=== PATIENT | female | born 1985 | race Caucasian/White ===

== ENCOUNTER 2021-06-13 15:39 | Emergency (ER) | payer OTHER, SELFPAY ==
[2021-06-13 15:42] VITALS: BP 116/77; PULSE 76; RESP 14; TEMP 37.1; O2SAT 100
[2021-06-13 15:53] VITALS: BP 116/77; PULSE 76; RESP 14; TEMP 37.1; O2SAT 100
--- NOTE | 2021-06-13 16:06 | ED.SKABFB ---
HPI - Skin/Abscess/Foreign Bdy General Chief complaint: Skin/Abscess/Foreign Body Stated complaint: right leg sting Time Seen by Provider: 06/13/21 15:52 Source: patient and RN notes reviewed Mode of arrival: ambulatory Limitations: no limitations History of Present Illness HPI narrative: Patient presents today complaining of an insect sting to her right leg that was sustained yesterday. She is unsure if she was stung by a wasp or hornet. States the area itches and is sore. She currently rates the pain 2/10. She did not take anything yesterday or use any [id number] interventions. Prior to arrival she took 25 mg of Benadryl and 600 mg of ibuprofen and put some [id number] hydrocortisone on the area. MD complaint: insect bite/sting Related Data Allergies Allergy/AdvReac Type Severity Reaction Status Date / Time No Known Allergies Allergy Verified 06/13/21 15:52 Review of Systems Review of Systems: CONSTITUTIONAL: Denies body aches, fever, chills, or sweats. EYES: Denies visual changes, redness, or discharge. ENT: Denies rhinorrhea, congestion, sore throat, or otalgia. CARDIOVASCULAR: Denies chest pain, palpitations, or edema. RESPIRATORY: Denies cough or dyspnea. GASTROINTESTINAL: Denies abdominal pain, nausea, vomiting, or diarrhea. GENITOURINARY: Denies dysuria or hematuria. SKIN: Denies rash, itching, or wounds.+ Insect sting to right leg MUSCULOSKELETAL: Denies back pain, joint pain, or myalgia. NEUROLOGIC: Denies headache, numbness, tingling, or weakness. PSYCH: Denies depression or anxiety. PMFSH Comments At time of signature, I have reviewed and agree with nursing past medical, surgical, social and family history unless otherwise noted. Please see nursing chart for further information. There is no relevant family history pertinent to the presenting complaint Exam Narrative: GENERAL: Well-appearing, well-nourished, and in no acute distress. HEAD: Normocephalic, atraumatic. EYES: EOMI. No redness or drainage. Conjunctivae normal. ENT: Mucous membranes pink and moist. NECK: Normal AROM. CHEST: No respiratory distress. EXTREMITIES: A 2 x 14 cm area of erythema to the right medial popliteal fossa. Mild localized edema noted. Nontender to palpation. No fluctuance noted. No induration noted. No signs of bacterial infection noted. SKIN: Warm, dry, no rash. Capillary refill normal. Normal skin turgor. NEURO: No focal deficits. Alert and oriented x3. Gait steady. PSYCH: Normal affect. No signs of depression or anxiety. Course Vital Signs Vital signs: Vital Signs Temperature 98.8 F 06/13/21 15:42 Pulse Rate 76 06/13/21 15:42 Respiratory Rate 14 06/13/21 15:42 Blood Pressure 116/77 06/13/21 15:42 Pulse Oximetry 100 06/13/21 15:42 Temperature 98.8 F 06/13/21 15:53 Pulse Rate 76 06/13/21 15:53 Respiratory Rate 14 06/13/21 15:53 Blood Pressure 116/77 06/13/21 15:53 Pulse Oximetry 100 06/13/21 15:53 Reviewed MDM - Skin/Abscess/Foreign Bdy Differential Diagnosis Differential diagnosis: Likely abscess of skin or subcutaneous tissue, urticaria, cellulitis, eczema, insect bites, impetigo and contact dermatitis Critical Care Time Critical Care Time Critical Care Time: No Discharge Plan Discharge Clinical Impression: Allergic reaction to insect sting Qualifiers: Encounter type: initial encounter Injury intent: accidental or unintentional Qualified Code(s): T63.481A - Toxic effect of venom of other arthropod, accidental (unintentional), initial encounter Patient Disposition: Home, Self-Care Condition: Stable Instructions: Insect Bite or Sting (ED) Additional Instructions: Use the triamcinolone cream as directed. Continue Benadryl and ibuprofen. Apply cold or ice pack to help with inflammation as well. Monitor for any signs of infection such as changing redness, increased pain, and seek reevaluation if you note any. Patient Language: Greek
== END 2021-06-13 16:13 | disposition home or self-care (01) ==
PROVIDERS: Emergency Provider Nurse Practitioner
DX: T63.461A Toxic effect of venom of wasps, accidental (unintentional), initial encounter (principal)
CPT/HCPCS: 99213; G0463

== ENCOUNTER 2021-09-11 17:29 | Emergency (ER) | payer OTHER, SELFPAY ==
[2021-09-11 17:36] VITALS: BP 119/72; PULSE 72; RESP 14; TEMP 37.1; O2SAT 98
--- NOTE | 2021-09-11 17:46 | ED.GENADULT ---
HPI - General Adult General Chief complaint: Upper Respiratory Infection Stated complaint: Sinus Pain/Congestioin/Cough Time Seen by Provider: 09/11/21 17:46 Source: patient Mode of arrival: ambulatory Limitations: no limitations History of Present Illness HPI narrative: 36-year-old female patient presents to the [facility] with complaints of cold symptoms for the past 6 days. Patient states she started feeling bad last Sunday and took a PCR Covid test on that day which did come back negative. Patient states she actually felt a lot better this past Sunday and started having symptoms that came back again last night. Patient states she has had a cough, runny nose, sinus pressure, headache and sneezing. Denies fevers. Related Data Allergies Allergy/AdvReac Type Severity Reaction Status Date / Time No Known Allergies Allergy Verified 09/11/21 17:48 Review of Systems Review of Systems: CONSTITUTIONAL: Denies fever, chills, or sweats. Positive body aches EYES: Denies visual changes, redness, or discharge. ENT: Positive rhinorrhea, congestion, denies sore throat, or otalgia. CARDIOVASCULAR: Denies chest pain, palpitations, or edema. RESPIRATORY: Positive productive cough, denies dyspnea. GASTROINTESTINAL: Denies abdominal pain, nausea, vomiting, or diarrhea. GENITOURINARY: Denies dysuria or hematuria. SKIN: Denies rash or itching. MUSCULOSKELETAL: Denies back pain, joint pain, or myalgia. NEUROLOGIC: Positive headache, numbness, or weakness. PSYCHIATRIC: Denies anxiety or depression. PMFSH Past Medical History Medical History (Updated 09/11/21 @ 18:22 by DOMINIC Salguero) Bronchitis Depression Pneumonia Family History Family History (Updated 09/11/21 @ 17:47 by DOMINIC Salguero) Other Heart disease Hypertension Social History Social History (Updated 09/11/21 @ 17:47 by DOMINIC Salguero) Smoking status: Current every day smoker Substance use: former Substance use type: marijuana Comments At the time of my signature I agree with nursing past medical history, surgical, social, and family history. There is no relevant family history pertinent to the presenting complaint. Exam Narrative: GENERAL: ill-appearing, well-nourished, and in no acute distress. HEAD: Normocephalic, atraumatic. EYES: PERRLA and EOMI. ENT: Nares with erythema and edema noted bilaterally no rhinorrhea or epistaxis. Mucous membranes moist. Posterior pharynx with no erythema, tonsillar edema, exudates or lesions present. NECK: Supple. No lymphadenopathy CHEST: Slight expiratory wheezing noted to bilateral lower lobes on auscultation no respiratory distress. HEART: Regular rate and rhythm. No murmur heard. Normal peripheral pulses. ABDOMEN: Soft, nontender, nondistended, normal active bowel sounds. EXTREMITIES: Normal range of motion. No edema. SKIN: Warm, dry, no rash. NEURO: No focal deficits. Alert and oriented x3. Course Reevaluation(s) Reevaluation #1: Reevaluated patient after her breathing treatment. Patient states she does feel little bit better. Patient continues to have a little bit of decreased lung sounds noted to the left lower lobe but the wheezing has improved overall. Discussed with patient that we will go ahead and discharge her home with an inhaler as well as some oral steroids to help with the wheezing and we will call her in a couple of days with the PCR Covid return results. Patient verbalized understanding denies any other questions or concerns at this time. Date: 09/11/21 Time: 18:23 Vital Signs Vital signs: Vital Signs Temperature 37.1 C 09/11/21 17:36 Pulse Rate 72 09/11/21 17:36 Respiratory Rate 14 09/11/21 17:36 Blood Pressure 119/72 09/11/21 17:36 Pulse Oximetry 98 09/11/21 17:36 Temperature 37.1 C 09/11/21 17:51 Pulse Rate 72 09/11/21 17:51 Respiratory Rate 16 09/11/21 18:18 Blood Pressure 119/72 09/11/21 17:51 Pulse Oximetry 99 09/11/21 18:18 Vital
[2021-09-11 17:51] VITALS: BP 119/72; PULSE 72; RESP 14; TEMP 37.1; O2SAT 98
[2021-09-11] MEDS: ALBUTEROL SULFATE NEB 2.5 MG/3 ML INH INHALATION (17:55)
[2021-09-11] MEDS: IPRATROPIUM BR 0.02% INH SOLN 0.5 MG/2.5 ML VIAL INHALATION (17:55)
[2021-09-11 18:18] VITALS: RESP 16; O2SAT 99
[2021-09-14 19:54] LABS: SARS-CoV-2 RNA PCR Negative
== END 2021-09-11 18:31 | disposition home or self-care (01) ==
PROVIDERS: Emergency Provider Nurse Practitioner Family
DX: J06.9 Acute upper respiratory infection, unspecified (principal); R05.9 Cough, unspecified; Z20.822 Contact with and (suspected) exposure to COVID-19; F17.200 Nicotine dependence, unspecified, uncomplicated
CPT/HCPCS: 87804; 94640; 99213; C9803; G0463; U0003; U0005

== ENCOUNTER 2022-12-29 17:14 | Emergency (ER) | payer OTHER, SELFPAY ==
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
[2022-12-29 17:24] VITALS: BP 115/67; PULSE 74; RESP 14; TEMP 36.9; O2SAT 100
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
[2022-12-29 17:33] VITALS: BP 115/67; PULSE 74; RESP 14; TEMP 36.9; O2SAT 100
== END 2022-12-29 18:25 | disposition home or self-care (01) ==
PROVIDERS: Emergency Provider Nurse Practitioner Family; PCP Family Medicine
DX: M54.12 Radiculopathy, cervical region (principal); F17.210 Nicotine dependence, cigarettes, uncomplicated
CPT/HCPCS: 72050; 99213; G0463